=== PATIENT | female | born 1940 | race Caucasian/White ===

== ENCOUNTER 2016-06-20 14:05 | Outpatient (CLI) | payer MEDICARE, OTHER ==
[2016-06-20 14:57] LABS: eGFR (African) > 60; eGFR (Non-African) > 60
== END 2016-06-20 14:10 ==
LOC: LAB 14:05
PROVIDERS: ATTEND Family Medicine
DX: E03.9 Hypothyroidism, unspecified (principal); E78.5 Hyperlipidemia, unspecified; M19.90 Unspecified osteoarthritis, unspecified site
CPT/HCPCS: 36415; 80053; 80061; 84443; 86431

== ENCOUNTER 2016-10-03 16:37 | Outpatient (CLI) | payer MEDICARE, OTHER | END 2016-10-03 16:40 | LOC: LAB 16:37 | PROVIDERS: ATTEND Physician Assistant | DX: R30.0 Dysuria (principal) | CPT/HCPCS: 87086; 87186 ==

== ENCOUNTER 2017-04-14 04:35 | Emergency (ER) | payer MEDICARE, OTHER ==
--- NOTE | 2017-04-14 05:21 | ED Physician Documentation ---
Low Back Pain - HISTORIAN Historian: patient - HPI Stated Complaint: back pain/constipation Chief Complaint: Low Back Pain/ Injury Additional Information: pt c/o severe backk pain ftomdorsal to low lumbar. takes care [facility]. also no bm for 4 days which she thinks contributes to back pain. took hydrocodone earlier tonight relieved pain for awhile now is back History: denies: history of chronic pain: Duration: continues in ED, worse Context: lifting Where: other ([facility]) Severity: moderate, severe Quality: burning, sharp, dull Associated Symptoms: constipation. denies: fever, chills, sweating, incontinence, nausea, vomiting Relieved By: nothing - ROS CONST: no problems CVS/RESP: none. denies: shortness of breath MS/SKIN/LYMPH: back pain Neuro/Psych: none, anxiety GI/: abdominal pain. denies: black stools - PAST HX Past History: other (hypothryoidism asthma ca breast-cure w/double lmastectomy) Surgeries/Procedures: appendectomy, cholecystectomy, hysterectomy, other ( double mastectomy) Allergies/Adverse Reactions: Allergies Allergy/AdvReac Type Severity Reaction Status Date / Time [id number] Reductase Allergy Severe Myalgias Verified 04/14/17 04:46 Inhibitor citalopram Allergy Diarrhea Verified 04/14/17 04:46 meperidine HCl [From Demerol] AdvReac Unknown Mental Verified 04/14/17 04:46 status change - SOCIAL HX Smoking History: non-smoker Alcohol Use: none Drug Use: none - FAMILY HX Family History: no significant history - VITAL SIGNS Vital Signs: Vital Signs Temp Pulse Resp BP Pulse Ox 98.2 F 82 16 128/59 95 04/14/17 04:35 04/14/17 04:35 04/14/17 04:35 04/14/17 04:35 04/14/17 04:35 - REVIEWED ASSESSMENTS Nursing Assessment Reviewed: Yes Vitals Reviewed: Yes ED Results Lab/Radiology - Lab Results Lab Results: Lab Results 04/14/17 05:35 WBC 9.19 K/ul K/ul (4.00-12.00) RBC 4.52 M/ul M/ul (3.90-5.20) Hgb 13.8 g/dL g/dL (12.0-16.0) Hct 43.0 % % (34.5-46.5) MCV 95.0 fl fl (80.0-100.0) MCH 30.4 pg pg (28.0-34.0) MCHC 32.0 g/dL g/dL (30.0-36.0) RDW 12.5 % % (11.3-14.3) Plt Count 224 K/mm3 K/mm3 (130-400) Neut % (Auto) 71.6 % % (39.0-79.0) Lymph % (Auto) 18.9 % % (16.0-50.0) Cataño % (Auto) 4.7 % % (0.0-11.0) Eos % (Auto) 2.9 % % (0.0-6.8) Baso % (Auto) 0.4 (0.0-1.5) Neut # (Auto) 6.6 # k/uL # k/uL (1.4-7.7) Lymph # (Auto) 1.7 # k/uL # k/uL (0.6-4.0) Cataño # (Auto) 0.4 # k/uL # k/uL (0.0-0.9) Eos # (Auto) 0.3 # k/uL # k/uL (0.0-0.6) Baso # (Auto) 0.0 # k/uL # k/uL (0.0-0.5) Reactive Lymphs % 1.5 % % (0.0-5.0) Reactive Lymphs # 0.1 # k/uL # k/uL (0.0-0.8) - Radiology Radiology Impressions: xs gas feces - Orders Orders: ED Orders Category Date Time Status ABDOMEN COMPLETE [RAD] Stat Exams 04/14/17 Taken CBC/PLATELET/DIFF Routine Lab 04/14/17 05:35 Completed CMP Routine Lab 04/14/17 Ordered Ondansetron HCl Rapdis [Zofran Odt] Med 04/14/17 06:16 Once 4 mg PO NOW ONE fentaNYL CITRATE/PF [Duragesic] Med 04/14/17 06:15 Once 75 mcg IM NOW ONE Low Back Pain/Injury - Physical Exam General Appearance: moderate distress EENT: eye inspection normal Neck: non-tender, painless ROM Resp/CVS: chest non-tender, breath sounds nml, heart sounds nml, no resp. distress, lungs clear, reg. rate & rhythm Abdomen: other (slight generalized tenderness and some distention) Back: CVA tenderness, muscle spasm (bilaterally most entire back) Neuro/Psych: oriented x3, sensation nml, mood/affect nml Skin: warm/dry, normal color. No: cyanosis, diaphoresis, jaundice Extremities: non-tender, normal range of motion, no evidence of injury, no edema Discharge Clincal Impression: acute exaberation back kpain, constipation Referrals: Samuel Mcintosh MD [Primary Care Provider] - 2 Days Comments: after discussion w/pt she elects go home w/pain and nausea meds and to take mg ccitrate. she will f/u w/pcp very soon if not better Disposition: 01 HOME, SELF-CARE Decision to Admit: NO Decision Time: 06:20
[2017-04-14 05:48] LABS: MEAN CORPUSCULAR HEMOGLOBIN 30.4 pg (28.0-34.0)
[2017-04-14 05:49] LABS: BASOPHILS % 0.4 (0.0-1.5); EOSINOPHILS % 2.9 % (0.0-6.8); MONOCYTES % 4.7 % (0.0-11.0); NEUTROPHILS # 6.6 # k/uL (1.4-7.7)
[2017-04-14] MEDS ORDERED: fentaNYL CITRATE/PF 100 MCG/ 2ML AMP IM ONE (06:15)
[2017-04-14] MEDS ORDERED: ONDANSETRON HCL 4 MG TAB.RAPDIS PO ONE (06:16)
[2017-04-14] MEDS ORDERED: fentaNYL CITRATE/PF 100 MCG/ 2ML AMP ONE (06:17)
[2017-04-14] MEDS ORDERED: ONDANSETRON HCL 4 MG TAB.RAPDIS ONE (06:18)
[2017-04-14 06:34] VITALS: BP 124/84
[2017-04-14 06:37] LABS: eGFR (African) > 60; eGFR (Non-African) > 60
--- NOTE | 2017-04-14 07:03 | Diagnostic Imaging Report ---
DIMITRIS PETIT [facility] [address] [facility] [address] 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 Constipation. Findings: Examination of the abdomen in supine and upright views demonstrates gaseous distention of the colon. Gas is evident in the small bowel, but there is no small bowel dilatation. Air fluid levels are seen in the colon on the upright view. There is no obstruction or free air. Degenerative changes are seen in the visualized thoracolumbar spine. The lung bases are clear. Impression: 1. Gaseous distention of the colon with air-fluid levels. 2. Increased small bowel gas without small bowel distention to suggest obstruction. Electronically signed on Apr 14, 2017 5:59:34 AM COMMERCIAL DESIGNER by: Emir ESCALANTE
== END 2017-04-14 06:30 | disposition home or self-care (01) ==
LOC: ED 04:35
DX: M54.5 Low back pain (principal); K59.00 Constipation, unspecified
CPT/HCPCS: 74020; 80053; 85025; A9270; J3010; 96372; 99283

== ENCOUNTER 2017-04-14 09:51 | Emergency (ER) | payer MEDICARE, OTHER ==
[2017-04-14] MEDS ORDERED: ONDANSETRON HCL/PF 4 MG/ 2ML VIAL ONE (10:19)
[2017-04-14] MEDS ORDERED: 0.9 % SODIUM CHLORIDE 500 ML IV ONE ×2 (10:19→10:29)
[2017-04-14] MEDS ORDERED: ONDANSETRON HCL/PF 4 MG/ 2ML VIAL IVP ONE (10:31)
[2017-04-14 10:39] LABS: BASOPHILS % 0.2 (0.0-1.5); EOSINOPHILS % 1.6 % (0.0-6.8); MEAN CORPUSCULAR HEMOGLOBIN 30.1 pg (28.0-34.0); MEAN CORPUSCULAR VOLUME 95.3 fl (80.0-100.0); NEUTROPHILS # 6.6 # k/uL (1.4-7.7)
[2017-04-14] MEDS ORDERED: DIAZEPAM 5 MG/ML DISP.SYRIN IVP ONE (10:50)
[2017-04-14 10:58] LABS: eGFR (African) > 60; eGFR (Non-African) > 60
--- NOTE | 2017-04-14 11:03 | ED Physician Documentation ---
General Adult - HISTORIAN Historian: patient, other (family member) - HPI Stated Complaint: N/V/no bm Chief Complaint: General Adult Onset: hours Timing: still present Severity: moderate Further Comments: yes (Pt is a 77 yo female who was seen in this ER earlier today and dx'd with constipation and back pain. Pt was d/c'd to home with instructions to take Magnesium Citrate, but pt could not keep the Magnesium Citrate down due to her vomiting. Pt had plane film x-rays which showed air fluid levels in the colon, but without obstruction or free air. Pt also complains of back pain.) - ROS CONST: no problems EYES/ENT: none CVS/RESP: none GI/: abdominal pain, vomiting, nausea MS/SKIN/LYMPH: back pain - PAST HX Past History: other (Asthma; thyroid d/o; breast cancer with double mastectomy) Surgeries/Procedures: cholecystectomy, hysterectomy, other (appendectomy, double mastectomy) Allergies/Adverse Reactions: Allergies Allergy/AdvReac Type Severity Reaction Status Date / Time Tuijfpg-[id number]-Yox Reductase Allergy Severe Myalgias Verified 04/14/17 04:46 Inhibitor citalopram Allergy Diarrhea Verified 04/14/17 04:46 meperidine HCl [From Demerol] AdvReac Unknown Mental Verified 04/14/17 04:46 status change - SOCIAL HX Smoking History: non-smoker - FAMILY HX Family History: No - VITAL SIGNS Vital Signs: Vital Signs Temp Pulse Resp BP Pulse Ox 98.4 F 99 H 20 162/61 95 04/14/17 09:58 04/14/17 09:58 04/14/17 09:58 04/14/17 09:58 04/14/17 09:58 - REVIEWED ASSESSMENTS Nursing Assessment Reviewed: Yes Vitals Reviewed: Yes Progress - Progress Progress: NS 500 cc IVF Zofran 4 mg IV Valium 5 mg IV for muscle spasm improved. Pt had bm while in ER. She says that it was a little watery, but she is now feeling better. CT abd/pelvis w/o contrast: Prominent loops of large bowel with stool and air centrally. Transition to normal diameter large bowel at the splenic flexure. Recommend dedicated large bowel imaging to further evaluate. d/w Dr. Severiano Jensen, [facility]. GI. Pt may go home and return to ER if sx recur. Pt should have a new colonoscopy in the near future. D/c instructions: Take Magnesium Citrate today. You may take 1/2 bottle and repeat after 6 hrs if you do not have a bowel movement after the first half bottle. Continue Miralax twice daily. Return to ER if you have any further abdominal pain, vomiting or any concerns. Follow up with primary provider to arrange a colonoscopy in the near future. Rx Valium 5 mg. Take one every 8 hrs for occasional muscle spasm/back pain. Disp: #5. ED Results Lab/Radiology - Lab Results Lab Results: Lab Results 04/14/17 04/14/17 04/14/17 10:30 10:30 10:30 WBC 8.40 K/ul K/ul (4.00-12.00) RBC 4.63 M/ul M/ul (3.90-5.20) Hgb 14.0 g/dL g/dL (12.0-16.0) Hct 44.2 % % (34.5-46.5) MCV 95.3 fl fl (80.0-100.0) MCH 30.1 pg pg (28.0-34.0) MCHC 31.6 g/dL g/dL (30.0-36.0) RDW 12.4 % % (11.3-14.3) Plt Count 238 K/mm3 K/mm3 (130-400) Neut % (Auto) 78.6 % % (39.0-79.0) Lymph % (Auto) 14.5 % L % (16.0-50.0) Tucker % (Auto) 4.0 % % (0.0-11.0) Eos % (Auto) 1.6 % % (0.0-6.8) Baso % (Auto) 0.2 (0.0-1.5) Neut # (Auto) 6.6 # k/uL # k/uL (1.4-7.7) Lymph # (Auto) 1.2 # k/uL # k/uL (0.6-4.0) Tucker # (Auto) 0.3 # k/uL # k/uL (0.0-0.9) Eos # (Auto) 0.1 # k/uL # k/uL (0.0-0.6) Baso # (Auto) 0.0 # k/uL # k/uL (0.0-0.5) Reactive Lymphs % 1.1 % % (0.0-5.0) Reactive Lymphs # 0.1 # k/uL # k/uL (0.0-0.8) Sodium 136 mmol/L mmol/L (136-145) Potassium 4.0 mmol/L mmol/L (3.5-5.1) Chloride 99 mmol/L mmol/L (98-107) Carbon Dioxide 24 mmol/L mmol/L (22-30) BUN 6 mg/dL L mg/dL (7-17) Creatinine 0.60 mg/dL mg/dL (0.52-1.04) Estimated Creat Clear 108 Est GFR ( Amer) > 60 (60 - ) Est GFR (Non-Af Amer) > 60 (60 - ) Glucose 182 mg/dL H mg/dL (74-106) Calcium 9.5 mg/dL mg/dL (8.4-10.2) Total Bilirubin 0.7 mg/dL mg/dL (0.2-1.3) AST 25 U/L U/L (15-46) ALT 28 U/L U/L (13-69) Alkaline Phosphatase 114 U/L U/L (38-126) Total Protein 7.9 g/dL g/dL (6.3-8.2) Albumin 4.3 g/dL g/dL (3.5-5.0) Lipase 46 U/L U/L (23-300) - Orders Orders: ED Orders Category Date Time Status Place IV Lock 1T Care 04/14/17 10:[address] ABD & PELVIS W/O CON Stat Exams 04/14/17 Ordered CBC/PLATELET/DIFF Routine Lab 04/14/17 10:30 Completed CMP Routine Lab 04/14/17 10:30 Completed LIPASE Stat Lab 04/14/17 10:30 Completed 0.9 % Sodium Chloride [Normal Saline] 500 ml Med 04/14/17 10:19 Discontinued IV .STK-MED 0.9 % Sodium Chloride [Normal Saline] 500 ml Med 04/14/17 10:29 Active IV NOW Diazepam [Valium] Med 04/14/17 10:50 Discontinued 5 mg IVP NOW ONE Ondansetron HCl/Pf [Zofran 4 mg/2 ml] Med 04/14/17 10:19 Discontinued 4 mg .ROUTE .STK-MED ONE Ondansetron HCl/Pf [Zofran 4 mg/2 ml] Med 04/14/17 10:31 Discontinued 4 mg IVP NOW ONE General Adult Physical Exam - PHYSICAL EXAM GENERAL APPEARANCE: moderate distress EENT: pharynx normal NECK: normal inspection, supple RESPIRATORY: no resp distress, chest non-tender, breath sounds normal CVS: reg rate & rhythm, heart sounds normal ABDOMEN: soft, normal bowel sounds, tenderness (diffuse) BACK: no CVA tenderness, CVA tenderness (R), other (paralumbar muscle spasm) SKIN: warm/dry, normal color EXTREMITIES: non-tender, normal range of motion, no evidence of injury NEURO: oriented X3, motor nml, sensation nml Discharge Clincal Impression: back pain/muscle spasm Abdominal pain Qualifiers: Abdominal location: unspecified location Qualified Code(s): R10.9 - Unspecified abdominal pain Referrals: Samuel Mcintosh MD [Primary Care Provider] - Condition: Stable Disposition: 01 HOME, SELF-CARE Decision to Admit: NO Decision Time: 13:19
[2017-04-14 13:42] VITALS: BP 148/68
--- NOTE | 2017-04-14 15:01 | Diagnostic Imaging Report ---
LISHA STAFFORD [facility] [address] [facility], [facility] [address] [place] [address]. 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 Comparison exams: None available Technique: CT Abdomen/pelvis without contrast protocol. Findings: Liver, spleen, adrenal glands, kidneys, and pancreas are without irregularity given exam technique. No suspicious renal calcifications. No abnormal dilation of the ureters in their course through the abdomen and pelvis. No central calcifications. Bladder decompressed. Pelvic phleboliths. Abdominal aorta with peripheral atherosclerotic disease. No aneurysm. Cardiac silhouette not enlarged. No pericardial effusion. Bowel without contrast limiting evaluation. No evidence for acute mesenteric inflammation or free air. Prominent loops of large bowel with stool and air centrally. Maximum diameter of 5 cm. Transition to normal diameter large bowel at the splenic flexure. Sigmoid diverticula. No adjacent inflammation. Small bowel without abnormal dilation. Small hiatal hernia. Osseous structures demonstrate degenerative changes. Lung bases demonstrate parenchymal scarring. No effusion. Impression: Prominent loops of large bowel with stool and air centrally. Transition to normal diameter large bowel at the splenic flexure. Recommend dedicated large bowel imaging to further evaluate. Sigmoid diverticulosis. No evidence for acute diverticulitis. No suspicious renal calcifications normal ureteric dilation. Small hiatal hernia. Electronically signed on Apr 14, 2017 11:26:22 AM MOLD CUTTING MACHINE OPERATOR by: Alvarado ESCALANTE
== END 2017-04-14 13:40 | disposition home or self-care (01) ==
LOC: ED 09:51
DX: M54.9 Dorsalgia, unspecified (principal); M62.830 Muscle spasm of back
CPT/HCPCS: 74176; 80053; 83690; 85025; J2405; J3360; J7060; 96361; 96374; 96375; 99283; S1016

== ENCOUNTER 2017-05-05 10:51 | Outpatient (CLI) | payer MEDICARE, OTHER ==
[2017-05-05 11:41] LABS: eGFR (African) > 60; eGFR (Non-African) > 60
== END 2017-05-05 11:00 ==
LOC: LAB 10:51
PROVIDERS: ATTEND Family Medicine
DX: E78.5 Hyperlipidemia, unspecified (principal); R60.0 Localized edema; E03.9 Hypothyroidism, unspecified
CPT/HCPCS: 36415; 80053; 80061; 84443

== ENCOUNTER 2017-10-21 16:21 | Outpatient (CLI) | payer MEDICARE, OTHER | END 2017-10-21 16:22 | LOC: LABRHC 16:21 | PROVIDERS: ATTEND Physician Assistant | DX: R30.0 Dysuria (principal) | CPT/HCPCS: 87086 ==

== ENCOUNTER 2017-11-19 10:27 | Outpatient (CLI) | payer MEDICARE, OTHER | END 2017-11-19 10:30 | LOC: POD 10:27 | PROVIDERS: ATTEND Podiatrist Public Medicine | DX: L84 Corns and callosities (principal); M79.674 Pain in right toe(s) | CPT/HCPCS: G0463 ==

== ENCOUNTER 2017-11-25 15:43 | Outpatient (CLI) | payer MEDICARE, OTHER | END 2017-11-25 15:44 | LOC: LABRHC 15:43 | PROVIDERS: ATTEND Physician Assistant | DX: R30.0 Dysuria (principal) | CPT/HCPCS: 87086; 87186 ==

== ENCOUNTER 2018-03-23 16:39 | Outpatient (CLI) | payer MEDICARE, OTHER | END 2018-03-23 16:40 | LOC: LABRHC 16:39 | PROVIDERS: ATTEND Family Medicine | DX: R35.0 Frequency of micturition (principal) | CPT/HCPCS: 87086 ==

== ENCOUNTER 2018-03-24 11:10 | Outpatient (CLI) | payer MEDICARE, OTHER ==
[2018-03-24 12:29] LABS: eGFR (Non-African) > 60
== END 2018-03-24 11:12 ==
LOC: LAB 11:10
PROVIDERS: ATTEND Family Medicine
DX: Z00.00 Encounter for general adult medical examination without abnormal findings (principal); F32.0 Major depressive disorder, single episode, mild; E78.5 Hyperlipidemia, unspecified; E03.9 Hypothyroidism, unspecified
CPT/HCPCS: 36415; 80053; 80061; 84443

== ENCOUNTER 2019-02-09 14:16 | Outpatient (CLI) | payer OTHER ==
[2019-02-09 14:35] LABS: A1C 6.3 % (<5.7)
[2019-02-09 15:03] LABS: eGFR (Non-African) > 60
[2019-02-09 15:08] LABS: BASOPHILS % 0.5 % (0.0-1.5); NEUTROPHILS # 5.5 # k/uL (1.4-7.7); SEGMENTED NEUTROPHILS % 68 % (39-79)
== END 2019-02-09 14:18 ==
LOC: LABRHC 14:16
PROVIDERS: ATTEND Family Medicine
DX: E03.9 Hypothyroidism, unspecified (principal); R35.0 Frequency of micturition
CPT/HCPCS: 80053; 82607; 83036; 84443; 85025; 87086

== ENCOUNTER 2019-04-23 11:36 | Outpatient (CLI) | payer MEDICARE, OTHER | END 2019-04-23 11:41 | LOC: LABRHC 11:36 | PROVIDERS: ATTEND Nurse Practitioner Family | DX: N39.0 Urinary tract infection, site not specified (principal); B96.1 Klebsiella pneumoniae [K. pneumoniae] as the cause of diseases classified elsewhere | CPT/HCPCS: 87086; 87186 ==